=== PATIENT | female | born 1940 | race Asian ===

== ENCOUNTER → 2018-11-03 | Outpatient (CLI) | payer MEDICARE, OTHER | END | disposition home or self-care (01) | LOC: LAB 09:39 | PROVIDERS: ATTEND Internal Medicine Interventional Cardiology | DX: R94.39 Abnormal result of other cardiovascular function study (principal) | CPT/HCPCS: 80048 ==

== ENCOUNTER → 2018-11-17 | Outpatient (CLI) | payer MEDICARE, OTHER ==
[~2018-11-17] MED LIST: IOHEXOL 100 ML ONE; NITROGLYCERIN AEROSOL (4.9 GM) ONE; NITROGLYCERIN AEROSOL (4.9 GM) SL ONE; SOD CHLORIDE 0.9% 100 ML ONE
== END | disposition home or self-care (01) ==
LOC: EDUNIT# 11-01 14:33 → C/S 09:40
PROVIDERS: ATTEND Internal Medicine
DX: R94.39 Abnormal result of other cardiovascular function study (principal)
CPT/HCPCS: 75571; 75574; Q9967